=== PATIENT | female | born 1975 | race Caucasian/White ===

== ENCOUNTER → 2020-05-18 | Outpatient (CLI) | payer BC ==
--- NOTE | 2020-05-18 12:11 | MM ---
Reason for exam: screening (asymptomatic). Baseline mammogram. History: Patient history of other cancer. Took hormonal contraceptives for 10 years. Physical Findings: Nurse did not find any significant physical abnormalities on exam. MG Screening Mammo w CAD Bilateral CC and MLO view(s) were taken. The breast tissue is heterogeneously dense. This may lower the sensitivity of mammography. Possible anterior left distortion. Left lower outer quadrant focal asymmetry and right 6 o'clock focal asymmetry. A couple benign punctate calcifications superior left breast. These results were verbally communicated with the patient and result sheet given to the patient on 05/18/20. ASSESSMENT: Incomplete: need additional imaging evaluation, BI-RAD 0 RECOMMENDATION: Special view mammogram of both breasts.
--- NOTE | 2020-05-18 12:13 | MM ---
Reason for exam: additional evaluation requested from abnormal screening. History: Patient history of other cancer. Took hormonal contraceptives for 10 years. Physical Findings: Breast exam preformed at baseline screening. MG Work Up Mamm w CAD BILAT Bilateral spot compression CC, spot compression MLO, and ML view(s) were taken. The breast tissue is heterogeneously dense. This may lower the sensitivity of mammography. Persistent 6 o'clock nodule on the right posterior, ultrasound recommended. Dense tissues throughout left breast, ultrasound recommended. No definite persisting abnormality. These results were verbally communicated with the patient and result sheet given to the patient on 05/18/20. ASSESSMENT: Incomplete: need additional imaging evaluation, BI-RAD 0 RECOMMENDATION: Ultrasound of both breasts. (right 6 o'clock, left whole breast)
--- NOTE | 2020-05-18 12:14 | USB ---
Reason for exam: additional evaluation requested from abnormal screening. History: Patient history of other cancer. Took hormonal contraceptives for 10 years. US Breast Limited BILAT Right limited breast ultrasound including focal area of concern, retroareolar and axilla demonstrates no cystic or solid lesion seen. Right scanned 5-7 o'clock. Left complete breast ultrasound includes all four quadrants, the retroareolar region and axilla. Finding demonstrates no cystic or solid lesion seen. Left entire breast scanned. Dense tissue throughout. These results were verbally communicated with the patient and result sheet given to the patient on 05/18/20. ASSESSMENT: Probably benign, BI-RAD 3 RECOMMENDATION: Follow-up diagnostic mammogram of both breasts in 6 months. (3D)
== END | disposition home or self-care (01) ==
LOC: RADMAMWWP 10:14
PROVIDERS: ATTEND Family Medicine
DX: Z12.31 Encounter for screening mammogram for malignant neoplasm of breast (principal); R92.8 Other abnormal and inconclusive findings on diagnostic imaging of breast
CPT/HCPCS: 77066; 77067

== ENCOUNTER → 2021-06-05 | Outpatient (CLI) | payer BC ==
[2021-06-05 19:34] LABS: Anti-Smith Ab Interp NEGATIVE (NEGATIVE); DNA Double-Stranded NEGATIVE (NEGATIVE)
== END | disposition home or self-care (01) ==
LOC: LABWHC1 08:09
PROVIDERS: ATTEND Dermatology
DX: L57.0 Actinic keratosis (principal); L30.9 Dermatitis, unspecified
CPT/HCPCS: 36415; 86038; 86225; 86235

== ENCOUNTER → 2021-10-03 | Outpatient (CLI) | payer BC ==
--- NOTE | 2021-10-03 10:40 | MM ---
Reason for exam: additional evaluation requested from prior study. Last mammogram was performed 1 year and 5 months ago. History: Patient history of other cancer. Took hormonal contraceptives for 10 years. Physical Findings: Nurse did not find any significant physical abnormalities on exam. MG 3D Diag Mammo W/Cad ROSELYN Bilateral CC and MLO view(s) were taken. Prior study comparison: May 18, 2020, bilateral MG work up mamm w CAD BILAT. May 18, 2020, bilateral MG screening mammo w CAD. The breast tissue is heterogeneously dense. This may lower the sensitivity of mammography. 6mm circumscribed isodense mass 6 o'clock right breast better seen and more defined now. Otherwise, no significant change. These results were verbally communicated with the patient and result sheet given to the patient on 10/03/21. ASSESSMENT: Incomplete: need additional imaging evaluation, BI-RAD 0 RECOMMENDATION: Ultrasound of the right breast.
--- NOTE | 2021-10-03 10:41 | USB ---
Reason for exam: additional evaluation requested from abnormal screening. History: Patient history of other cancer. Took hormonal contraceptives for 10 years. US Breast Limited RT Right limited breast ultrasound including focal area of concern, retroareolar and axilla demonstrates a 0.2 x 0.2 x 0.1cm oval, cystic lesion at 6 o'clock. 6 month follow up mammogram recommended. These results were verbally communicated with the patient and result sheet given to the patient on 10/03/21. ASSESSMENT: Probably benign, BI-RAD 3 RECOMMENDATION: Follow-up diagnostic mammogram of the right breast in 6 months.
== END | disposition home or self-care (01) ==
LOC: RADMAMWWP 08:50
PROVIDERS: ATTEND Family Medicine
DX: N60.01 Solitary cyst of right breast (principal); N63.15 Unspecified lump in the right breast, overlapping quadrants
CPT/HCPCS: 77062; 77066

== ENCOUNTER → 2023-05-02 | Outpatient (CLI) | payer BC ==
[2023-05-02 14:21] LABS: HCT 40.1 % (37.2-46.3); MCH 28.6 pg (27.0-32.0); MCHC 32.4 d/dL (32.0-37.0); MCV 88.1 FL (80.0-97.0); Mean Platelet Volume 10.4 FL (9.5-12.2); NRBC Per 100 WBC 0 X 10*3/uL (0.00-0.01); Platelet Count 208 X 10*3/uL (140-440); RBC 4.55 X 10*6/uL (4.10-5.20); RDW 12.2 % (11.5-14.5); WBC 6.38 X 10*3/uL (4.50-10.00)
[2023-05-02 15:28] LABS: ALT 83 U/L (8-44); AST 51 U/L (13-35); Albumin 4.7 d/dL (3.8-4.9); Albumin/Globulin Ratio 1.62 Ratio (1.60-3.17); Alkaline Phosphatase 86 U/L (41-126); BUN/Creat Ratio 18.62 Ratio (12.00-20.00); Blood Urea Nitrogen 14.9 mg/dL (9.0-27.0); Calcium 9.9 mg/dL (8.7-10.3); Carbon Dioxide 25.4 mmol/L (21.6-31.8); Chloride 105 mmol/L (96-109); Chol/HDL Ratio 2.76 Ratio; Estradiol 56.9 pg/mL; Globulin 2.9 d/dL (1.6-3.3); Glucose 83 mg/dL (70-110); LDL Cholesterol,Calculated 94.5 mg/dL (0.0-131.0); Potassium 4.5 mmol/L (3.5-5.5); Sodium 141 mmol/L (135-145); T4, Free (Free Thyroxine) 1.15 ng/dL (0.80-1.80); Total Bilirubin 0.3 mg/dL (0.3-1.2); Total Protein 7.6 d/dL (6.2-8.2); VLDL Calculation 17.84 mg/dL (5.00-40.00)
[2023-05-02 15:30] LABS: Testosterone <10.00 ng/dL (9.01-47.94)
== END | disposition home or self-care (01) ==
LOC: LABWHC1 07:48
PROVIDERS: ATTEND Family Medicine
DX: R53.83 Other fatigue (principal)
CPT/HCPCS: 36415; 80053; 80061; 82533; 82626; 82670; 84144; 84403; 84439; 84443; 84481; 85027